=== PATIENT | female | born 1965 | race Hispanic/Latino ===

== ENCOUNTER 2024-04-25 15:58 | Emergency (ER) | payer SELFPAY ==
[2024-04-25] VITALS (11 sets, daily range): BP systolic 127–148; BP diastolic 71–85
[~2024-04-25] VITALS: Ht 162.6 cm; Wt 76.2 kg
[2024-04-25 16:34] LABS: URINE BILIRUBIN - DIPSTICK Negative (NEGATIVE); URINE BLOOD DIPSTICK Negative (NEGATIVE); URINE COLOR Light yellow; URINE GLUCOSE - DIPSTICK Negative (NEGATIVE); URINE KETONE Negative (NEGATIVE); URINE LEUK ESTERASE Negative (NEGATIVE); URINE NITRITE - DIPSTICK Negative (Negative); URINE PROTEIN - DIPSTICK Negative (NEG-TRACE); URINE SPECIFIC GRAVITY 1.015; URINE UROBILINOGEN - DIPSTICK 0.2 E.U./dL (0.2)
[2024-04-25 16:34] LABS: BASO% 0.5 % (0-3); EOS% 3.5 % (0-8); HEMATOCRIT 40.9 % (37.0-47.0); HEMOGLOBIN 13.3 g/dl (12.0-16.0); IMMATURE GRANULOCYTES 0.2 % (0.0-5.0); LYMPH% 32.3 % (15-41); MEAN CELL VOLUME 85.6 fL CALC (80.0-100.0); MEAN CORPUSCULAR HGB 27.8 pG CALC (26.0-32.0); MEAN CORPUSCULAR HGB CONC 32.5 g/dL CAL (32.0-36.0); MONO% 6.4 % (2-13); NEUT# 3.39 thou/uL (2.00-7.15); NEUT% 57.1 % (42-76); RED BLOOD COUNT 4.78 mill/uL (4.20-5.60)
[2024-04-25 16:46] LABS: ALBUMIN 4.1 g/dL (3.2-5.0); ALKALINE PHOSPHATASE 96 u/l (38-126); ANION GAP 9 (6-22 (CALC)); BUN 14 mg/dL (7-17); BUN/CREATININE RATIO 26 (12-20 (CALC)); CARBON DIOXIDE 28 mmol/l (22-30); CHLORIDE 107 mmol/l (95-108); CREATININE 0.5 mg/dL (0.5-1.0); ESTIMATED GFR 110 ML/MIN (>=90 (CALC)); MAGNESIUM 1.7 mg/dL (1.6-2.3); SGOT/AST 30 u/l (14-36); SODIUM 140 mmol/l (137-146); TOTAL PROTEIN 6.7 g/dL (6.3-8.2)
[2024-04-25 16:47] LABS: BILIRUBIN, TOTAL 0.5 mg/dL (0.02-1.3)
[2024-04-25 16:52] LABS: INTERNATIONAL NORMALIZED RATIO 1.1 RATIO (0.7-1.3); PROTHROMBIN TIME 11.6 SECONDS (9.0-12.5)
[2024-04-25 16:53] LABS: D-DIMER < 0.19 mg/L (0.19-0.60)
[2024-04-25] MEDS ORDERED: METFORMIN HCL1000 MG PO (17:17)
[2024-04-25] MEDS ORDERED: CRESTOR20 MG PO (17:18)
[2024-04-25] MEDS ORDERED: GLYBURIDE1.25 MG PO (17:18)
[2024-04-25] MEDS ORDERED: METOPROLOL TARTRATE 25 MG/TAB PO ONE (17:25)
[2024-04-25] MEDS ORDERED: LOPRESSOR25 M1 PO (18:53)
[2024-04-25] MEDS ORDERED: METOPROLOL TARTRATE 5 MG/5 ML VIAL IV ONE (19:10)
== END 2024-04-25 20:15 | disposition home or self-care (01) | DRG 310 ==
LOC: ED 15:58
PROVIDERS: Nurse Practitioner
DX: R00.0 Tachycardia, unspecified (principal); I10 Essential (primary) hypertension; E78.5 Hyperlipidemia, unspecified; Z79.84 Long term (current) use of oral hypoglycemic drugs